=== PATIENT | male | born 1975 | race Two or more races ===

== ENCOUNTER 2018-10-15 10:36 | Emergency (ER) | payer OTHER ==
[~2018-10-15] VITALS: Ht 177.8 cm; Wt 80.3 kg
[2018-10-15 11:29] VITALS: BP 14/90
[2018-10-15] MEDS ORDERED: MORPHINE SULFATE 4 MG/ML SYR/VIAL IM ONE (12:15)
[2018-10-15] MEDS ORDERED: ONDANSETRON ODT 4 MG TAB PO ONE (12:15)
== END 2018-10-15 13:06 | disposition home or self-care (01) ==
LOC: ER 10:36
DX: S22.31XA Fracture of one rib, right side, initial encounter for closed fracture (principal); W31.89XA Contact with other specified machinery, initial encounter; Y93.89 Activity, other specified; Y92.69 Other specified industrial and construction area as the place of occurrence of the external cause; Y99.8 Other external cause status
CPT/HCPCS: 71101; 96372; 99283; J2270; Q0162